=== PATIENT | male | born 1965 | race Caucasian/White ===

== ENCOUNTER → 2023-04-18 | Outpatient (CLI) | payer OTHER, SELFPAY ==
[2023-04-20 12:09] LABS: PSA, Free 0.77 ng/mL; PSA, Free % 19.5 % (.)
== END | disposition home or self-care (01) ==
LOC: LAB 16:11
PROVIDERS: PCP Nurse Practitioner Primary Care; Referring Provider Urology; Visit Provider Urology
DX: R97.20 Elevated prostate specific antigen [PSA] (principal)
CPT/HCPCS: 36415; 84153; 84154

== ENCOUNTER → 2024-01-17 | Outpatient (CLI) | payer OTHER, SELFPAY ==
--- NOTE | 2024-01-17 | IMM_PTH ---
PATIENT: ILYA CASTRO LOC: [facility] U#:[id number] AGE/SX: 58/M ROOM: RE01/17/[address]: Dr. Louis Obrien MD : 1965 BED: DIS: 01/17/2024 SPEC #: [id number] RECD: 01/19/24 13:44 STATUS: AUGUSTO REQ #: [id number] ALEXANDR: 01/17/24 00:[address]: Louis Obrien DEPT: IMMUNOHISTOCHEMISTRY RECD BY: Mulugeta Gill ENTERED: 01/19/24 13:47 SP TYPE: IMMUNO OT DR: Shweta Slater, GLORIA Tissues: E - PROSTATE LEFT F - PROSTATE LEFT Procedures: 34BE12 (add) P40 (add) P40 (initial) PHYSICIAN & INSTITUTION [place] [id number] SPECIMEN INFORMATION: Tissue Source: E. Left prostate, mid, core biopsy, F. Left prostate, base, core biopsy Clinical Info: Elevated PSA Specimen Number: [id number] E & F CPT code: 95769, 94428 x3 METHODOLOGY: Deparaffinized sections of prefer/formalin-fixed tissue or PAP/DQ stained slides are incubated with monoclonal/polyclonal antibodies/oligonucleotide probes. Localization is made via biotin free immunoperoxidase method. Appropriate controls are performed and reacted as expected. Results on target cell population are indicated in the following table: RESULTS: ANTIBODY / CLONE RESULT Block E P40 (BC28) positive 34BE12 (34BE12) positive Block F P40 (BC28) positive 34BE12 (34BE12) positive These tests were developed and their performance characteristics determined by [facility]. They may not have been cleared or approved by the [place]. Food and Drug Administration. The FDA has determined that such clearance or approval is not necessary. The above immunohistochemical/dualISH markers are ordered and reviewed by the Pathologist. INTERPRETATION: E. Left prostate, mid, core, biopsy: No evidence of malignancy. F. Left prostate, base, core, biopsy: No evidence of malignancy. AM:sulema 01/20/2024
--- NOTE | 2024-01-17 13:00 | PROSBIL_PTH ---
PATIENT: ILYA CASTRO [facility] U#:[id number] AGE/SX: 58/M ROOM: RE01/17/[address]: Dr. Louis Obrien MD : 1965 BED: DIS: 01/17/2024 SPEC #: [id number] RECD: 01/17/24 16:08 STATUS: AUGUSTO REUli #: [id number] ALEXANDR: 01/17/24 13:[address]: Louis Obrien DEPT: SURGICAL PATHOLOGY RECD BY: Nicol Valdez ENTERED: 01/18/24 08:44 SP TYPE: PROST BX HARRISON DR: Shweta Slater NP Tissues: A - PROSTATE RIGHT B - PROSTATE RIGHT C - PROSTATE RIGHT D - PROSTATE LEFT E - PROSTATE LEFT F - PROSTATE LEFT Procedures: PROSTATE BX HEADER OPERATION: Prostate biopsy PRE-OP DIAGNOSIS: Elevated PSA TISSUE SUBMITTED: A - Right apex, B - Right mid, C - Right base, D - Left apex, E - Left mid, F - Left base MICROSCOPIC DIAGNOSIS A. Right prostate, apex, core biopsy: Minimal chronic inflammation B. Right prostate, mid, core biopsy: Mild chronic inflammation with focal acute inflammation Glandular atrophy C. Right prostate, base, core biopsy: Focal chronic inflammation D. Left prostate, apex, core biopsy: Chronic inflammation E. Left prostate, mid, core biopsy: Chronic inflammation with focal acute inflammation Glandular atrophy See comment F. Left prostate, base, core biopsy: Mild chronic inflammation. Focal acute inflammation. Glandular atrophy. See comment. MATT/ 01/19/2024 COMMENT E&F. Immunohistochemistry ([id number]) supports the above diagnosis. MICROSCOPIC DESCRIPTION Slides are reviewed. GROSS DESCRIPTION A - Received is one container designated prostate, right apex. The specimen consists of two elongated fragments of light osman-white soft tissue each measuring 1.1 cm in length and 0.1 cm in diameter. The specimen is totally submitted in one cassette. B - Received is one container designated prostate, right mid. The specimen consists of two elongated fragments of light osman-white soft tissue measuring 0.8cm and 1.2cm in length and 0.1 cm in diameter. The specimen is totally submitted in one cassette. C - Received is one container designated prostate, right base. The specimen consists of two elongated fragments of light osman-white soft tissue each measuring 1.2 cm in length and 0.1 cm in diameter. The specimen is totally submitted in one cassette. D - Received is one container designated prostate, left apex. The specimen consists of two elongated fragments of light osman-white soft tissue measuring 0.5cm and 1.5cm in length and 0.1 cm in diameter. The specimen is totally submitted in one cassette. E - Received is one container designated prostate, left mid. The specimen consists of three elongated fragments of light osman-white soft tissue measuring 0.7cm to 1.2 cm in length and 0.1 cm in diameter. The specimen is totally submitted in one cassette. F - Received is one container designated prostate, left base. The specimen consists of two elongated fragments of light osman-white soft tissue measuring 1.1 and 1.5 cm in length and 0.1 cm in diameter. The specimen is totally submitted in one cassette. / STEPHIE/mr 01/18/2024 TC:2 CPT: 04894 x6
== END | disposition home or self-care (01) ==
LOC: LABSPEC 16:20
PROVIDERS: PCP Nurse Practitioner Primary Care; Referring Provider Urology; Visit Provider Urology
DX: R97.20 Elevated prostate specific antigen [PSA] (principal)
CPT/HCPCS: 88305; 88341; 88342; G0416

== ENCOUNTER → 2024-05-30 | Outpatient (CLI) | payer OTHER, SELFPAY ==
[2024-05-30 17:35] LABS: PSA,Total- Diagnostic 6.68 ng/mL (0.0-4.0)
== END | disposition home or self-care (01) ==
LOC: LAB 16:49
PROVIDERS: PCP Nurse Practitioner Primary Care; Referring Provider Urology; Visit Provider Urology
DX: R97.20 Elevated prostate specific antigen [PSA] (principal)
CPT/HCPCS: 36415; 84153

== ENCOUNTER → 2024-12-06 | Outpatient (CLI) | payer OTHER, SELFPAY ==
[2024-12-08 10:09] LABS: PSA, Free 1.31 ng/mL
== END | disposition home or self-care (01) ==
LOC: LAB 16:42
PROVIDERS: PCP Nurse Practitioner Primary Care; Referring Provider Urology; Visit Provider Urology
DX: R97.20 Elevated prostate specific antigen [PSA] (principal)
CPT/HCPCS: 36415; 84153; 84154